=== PATIENT | female | born 1980 | race Caucasian/White ===

== ENCOUNTER 2018-08-26 09:30 | Inpatient (IN) | payer OTHER ==
--- NOTE | 2018-08-12 15:45 | HP ---
Admitting History and Physical - Primary Care Physician PCP: Blas Pagan - Admission Chief Complaint: Left breast cancer History of Present Illness: 38 year old premenapausal female who underwent screening mammogram 04/2018 which showed highly suspicious area of calcifications in the lower inner aspect of left breast cancer spanning over 6 cm. Stereotactic core bx 05/2018 showed high grade DCIS ER-ND+ Breast MRI 06/2018 1.2 cm enhancement left breast 8:00 but calcifications are very extensive. . Myrisk testing was positive for ADAM mutation. History Source: Patient Limitations to Obtaining History: Language Barrier (speaks burundian) - Past Medical History ELECTRICAL DESIGNER DRAFTER: Yes: Migraine Cardiovascular: Yes: HTN Gastrointestinal: Yes: Gastritis (chronic) - Past Surgical History Past Surgical History: Yes: None - Smoking History Smoking history: Never smoked Have you smoked in the past 12 months: No - Alcohol/Substance Use Hx Alcohol Use: Yes (rarely) Home Medications - Allergies Allergies/Adverse Reactions: Allergies Allergy/AdvReac Type Severity Reaction Status Date / Time No Known Allergies Allergy Verified 08/12/18 15:32 - Home Medications Home Medications (free text): butalbitol Family Disease History - Family Disease History Family Disease History: CA: Father (father ? throat cancer) Physical Examination Constitutional: Yes: Well Nourished Breast(s): Yes: Other (small B sized cups with obvious bruising from her steretactic core bx. Some palpable scarring from post bx changes left breast . No adenopathy or palapable masses.) Problem List - Problems (1) Ductal carcinoma in situ (DCIS) of left breast Code(s): D05.12 - INTRADUCTAL CARCINOMA IN SITU OF LEFT BREAST Assessment/Plan Left total mastectomy, sentenel node biopsy, lymphoscintogram ,possible axillary node dissection implant reconstruction
--- NOTE | 2018-08-18 13:45 | PATH ---
Surgical Pathology Report Patient Name: JOSE ANTONIO SALEH [facility]. Rec. #: [id number] /Age/Gender: 1980 (Age: 38) / F Account: [id number] Location: [facility] Taken: 07/27/2018 Received: 07/27/2018 Reported: 08/17/2018 Physicians: Blas Pagan M.D. Specimen(s) Received SLIDE REVIEW Clinical History Abnormal left mammogram with microcalcifications Final Diagnosis BREAST, LEFT, LIQ WITH CALCS, CORE BIOPSY (2 H&E SLIDES: [id number] A; 06/22/18): DUCTAL CARCINOMA IN SITU (DCIS), SOLID, PAPILLARY AND MICROPAPILLARY TYPE, INTERMEDIATE TO HIGH NUCLEAR GRADEWITH EXTENSIVE NECROSIS AND ASSOCIATED CALCIFICATIONS. Per outside report, results of ER and ME studies are as follows: ER: negative. ME: positive (70% of tumor cells staining, intensity: variable). Electronically Signed Lissett Benedict M.D. Amendments Amended: 08/17/2018 Previous Signout Date: 07/29/2018 Comment: To correct typographic error in name of submitting institution. The diagnosis is unchanged. Gross Description Received from [facility], [place], [place] are two H&E slides, labeled with the patient's name and accession number [id number], A 2-2. Also received is a corresponding pathology report.
[2018-08-19 10:36] VITALS: BMI 33.1
[2018-08-26] MEDS ORDERED: MIDAZOLAM HCL 2 MG/2 ML SINGLE DOSE VIAL ONE (10:45)
[2018-08-26] MEDS ORDERED: ROCURONIUM BROMIDE 50 MG/5 ML VIAL ONE ×2 (10:45→13:35)
[2018-08-26] MEDS ORDERED: PROPOFOL 20 ML ONE (10:45)
[2018-08-26] MEDS ORDERED: fentaNYL CITRATE 250 MCG/5 ML VIAL ONE (10:45)
[2018-08-26] MEDS ORDERED: ONDANSETRON 4 MG/2 ML VIAL ONE (10:46)
[2018-08-26] MEDS ORDERED: DEXAMETHASONE SOD PHOSPHATE 4 MG/1 ML VIAL ONE (10:46)
[2018-08-26] MEDS ORDERED: LIDOCAINE HCL/PF 2% SDV 5ML VIAL ONE (10:46)
[2018-08-26] MEDS ORDERED: SODIUM CHLORIDE 0.9% P/F 10 ML VIAL IJ ONE ×2 (10:51→13:23)
[2018-08-26] MEDS ORDERED: ceFAZolin SODIUM 1 GM VIAL ONE ×2 (10:54→12:12)
[2018-08-26] MEDS ORDERED: GENTAMICIN SO4 80 MG/2 ML VIAL ONE (10:54)
[2018-08-26] MEDS ORDERED: oxyCODONE HCL 5 MG TABLET PO PRN (11:47)
[2018-08-26] MEDS ORDERED: ZOLPIDEM TARTRATE 5 MG TABLET PO PRN (11:47)
[2018-08-26] MEDS ORDERED: ONDANSETRON 4 MG/2 ML VIAL IVPUSH PRN (11:47)
[2018-08-26] MEDS ORDERED: BUPIVACAINE HCL/PF 2.5 MG/ML - 30 ML VIAL IJ ONE (13:23)
[2018-08-26] MEDS ORDERED: BUPIVACAINE LIPOSOME/PF (EXPAREL) 266 MG/20 ML VIAL ONE (13:23)
[2018-08-26] MEDS ORDERED: WATER FOR INJ,STERILE 10 ML ONE (14:53)
[2018-08-26] MEDS ORDERED: CEFAZOLIN 1 GM/D5W 1 GM/50 ML BAG IVPB SCH (15:00)
[2018-08-26] MEDS ORDERED: NEOSTIGMINE METHYLSULFATE 0.5 MG/ML - 10 ML MDV ONE (15:28)
[2018-08-26] MEDS ORDERED: GLYCOPYRROLATE 0.2 MG/1 ML VIAL ONE ×2 (15:28→15:29)
--- NOTE | 2018-08-26 15:58 | OP ---
Operative Note - Note: Operative Date: 08/26/18 Pre-Operative Diagnosis: left breast cancer Operation: left breast nipple mastectomy with left axillary sentinnel node biopsy. left breast reconstruction with alloderm and implant Surgeon: Dash Kaufman Heel Stiffener: Stefania Mclaughlin Anesthesiologist/OPERATIONS STAFF SPECIALIST SECURITY: Jeanine Mcfarlane Anesthesia: General Specimens Removed: left breast tissue and axillary tissue Fluid Volume Replaced (mls): 1,200
--- NOTE | 2018-08-26 17:09 | OP ---
DATE OF OPERATION: 08/26/2018 PREOPERATIVE DIAGNOSIS: Left breast ductal carcinoma in situ (DCIS). POSTOPERATIVE DIAGNOSIS: Left breast ductal carcinoma in situ (DCIS). PROCEDURE: Left breast nipple-sparing mastectomy through an inframammary approach with left axillary sentinel lymph node biopsy and direct implant reconstruction with AlloDerm. ANESTHESIA: General endotracheal anesthesia. PRIMARY SURGEON: Sharon Pagan MD MOONER: ALBERT Landers PRIMARY SURGEON FOR DIRECT IMPLANT RECONSTRUCTION: Sharon Kaufman MD, registered medical assistant Stefania. COMPLICATIONS: None. INDICATIONS: The patient is a 38-year-old G2, P2, premenopausal female of [facility] descent with no family history of breast or ovarian cancer. She was found to have extensive calcifications in the lower inner aspect of the left breast on screening mammography in May 2018. Stereotactic biopsy showed intermittent high-grade DCIS which was ER negative and FL positive. MRI just showed a 1.3 cm area of enhancement in the left breast 8 o'clock region. She underwent genetic testing and was found to have an ADAM mutation. The patient was counseled as to possible surgical options. Given the extent of the disease in the left breast, mastectomy was indicated. She was given the option of prophylactic contralateral mastectomy and after a long discussion about the genetics of the ADAM mutation she decided to just have a mastectomy on the left side and continue right breast surveillance. She was seen by Plastic Surgery and direct implant reconstruction was recommended. She was offered nipple-sparing technique. The patient was brought in for the procedure on August 26, 2018. She underwent lymphoscintigraphy through a periareolar injection of technetium-99 at [facility] and then was brought to the [facility] area. PROCEDURE: In the holding area site verification was made and informed consent was obtained. She was marked preoperatively by the plastic surgeon. She was brought into the operating room and laid on the OR table in a supine position. Venodynes were placed on the lower extremities prior to induction. She received Ancef 1 g prior to incision. Both breasts were sterilely prepped and draped in the usual fashion and she underwent general endotracheal anesthesia. The left axillary sentinel lymph node biopsy was first performed after a timeout was performed. An incision was made just below the hair-bearing area of the left axilla and 2 hot lymph nodes were easily found in the level 1 region of the left axilla with the first sentinel node with a 10-second gamma count of 40,204. The second sentinel lymph node had a 10-second gamma count of 4744 and background counts passing over these 2 nodes was 1005. No other hot nodes were found and on frozen section both nodes came back negative, so no further nodes were removed. At this point the nipple-sparing mastectomy was performed through a 9-cm inframammary incision. The skin edges were everted and the breast tissue was retracted inferiorly using Sierra clamps. A skin flap was raised using electrocautery superiorly to the level of the clavicle, medially to the level of the sternum, laterally to the level of the latissimus and inferiorly to the level of the inframammary fold. The breast was taken down off the pectoralis major muscle using electrocautery from an inferior medial to superior lateral, completely removed intact. It was oriented with the long lateral, short superior suture. Sets of radiographs showed removal of the clip in question. Hemostasis was achieved. A retroareolar biopsy was taken underneath the left nipple-areolar complex and sent for frozen section. It came back with some atypia but will await permanent section. A separate anterior margin was taken on the upper flap as well as a separate anterior margin on the lower outer quadrant which were both sent separately to pathology with a suture marking the biopsy cavity side. Again, hemostasis was achieved and the wound was copiously irrigated with warm sterile saline. At this point instruments and gloves were changed and Dr. Kaufman scrubbed into the case, became the primary surgeon to perform the subpectoral direct implant reconstruction with AlloDerm. Two Gaston drains will be placed around the implants, brought through separate stab incisions on the lateral skin flaps and secured in place using 3-0 nylon suture. The axillary incision as well as inframammary incision will be closed by Plastic Surgery using interrupted 3-0 deep dermal PDS suture and a running 4-0 subcuticular Biosyn suture. Mastisol and Steri-Strips will be applied over the wound and she will have Exparel injected into the chest wall for postoperative pain control. The patient will be placed in a surgical bra and extubated at the end of the case. She will be recovered and admitted postoperatively for pain and wound management. Estimated blood loss was about 100 mL at the end of the mastectomy and she was hemodynamically stable. All sponge and needle counts were correct at this point of the case. SHARON PAGAN M.D. [id number]
[2018-08-26] MEDS: CEFAZOLIN 1 GM/D5W 1 GM/50 ML BAG IVPB SCH ×2 (17:19→23:49)
[2018-08-26] MEDS: oxyCODONE HCL 5 MG TABLET PO PRN ×2 (17:20→21:35)
[2018-08-26] MEDS: ACETAMINOPHEN 325 MG TABLET (FP) PO PRN (21:34)
[2018-08-27] MEDS: CEFAZOLIN 1 GM/D5W 1 GM/50 ML BAG IVPB SCH ×4 (06:16→23:52)
[2018-08-27 07:56] LABS: HEMATOCRIT 35.6 % (32.4-45.2); HEMOGLOBIN 12.3 GM/dl (10.7-15.3); MCHC 34.4 g/dl (32.0-36.0); MEAN CELL VOLUME 87.2 fl (80-96); MEAN PLT VOLUME 8.4 fl (7.5-11.1); PLATELET COUNT 384 K/MM3 (134-434); RBC 4.08 M/mm3 (3.60-5.2); RDW 12.1 % (11.6-15.6)
[2018-08-27] MEDS: DEXTROSE 5%-0.45% SALINE 1,000 ML IV SCH ×2 (08:30→12:18)
[2018-08-27] MEDS: oxyCODONE HCL 5 MG TABLET PO PRN ×3 (08:31→17:54)
--- NOTE | 2018-08-27 08:52 | PN ---
Progress Note, Physician Chief Complaint: POD1 s/p left mastectomy/reconstruction under GA. Pt c/o pain after surgery, which is now better controlled. No N/V, was able to ambulate. Doing well now - Current Medication List Current Medications: Active Medications Acetaminophen (Tylenol -) 650 mg PO Q4H PRN PRN Reason: FEVER Last Admin: 08/26/18 21:34 Dose: 650 mg Heparin Sodium (Porcine) (Heparin -) 5,000 unit SQ BID PAZ Dextrose/Sodium Chloride (D5-1/2ns -) 1,000 mls @ 100 mls/hr IV ASDIR PAZ Last Admin: 08/27/18 08:30 Dose: Not Given Cefazolin Sodium (Ancef 1 Gm Premixed Ivpb -) 1 gm in 50 mls @ 100 mls/hr IVPB Q6H PAZ Stop: 09/02/18 17:00 Last Admin: 08/27/18 06:16 Dose: 100 mls/hr Ondansetron HCl (Zofran Injection) 4 mg IVPUSH Q6H PRN PRN Reason: NAUSEA AND/OR VOMITING Oxycodone HCl (Roxicodone -) 5 mg PO Q4H PRN PRN Reason: PAIN LEVEL 1-5 Oxycodone HCl (Roxicodone -) 10 mg PO Q4H PRN PRN Reason: PAIN LEVEL 6-10 Last Admin: 08/27/18 08:31 Dose: 10 mg Zolpidem Tartrate (Ambien -) 5 mg PO HS PRN PRN Reason: Insomnia - Objective Vital Signs: Vital Signs Temperature 98.9 F 08/27/18 06:00 Pulse Rate 91 H 08/27/18 06:00 Respiratory Rate 18 08/27/18 06:00 Blood Pressure 120/70 08/27/18 06:00 O2 Sat by Pulse Oximetry (%) 90 L 08/27/18 06:00 Labs: CBC, BMP 08/27/18 06:00
--- NOTE | 2018-08-27 09:06 | PN ---
Progress Note, Physician Chief Complaint: Left breast cancer S/P left total mastectomy sentenel node biopsy alloderm implant reconstruction POD #1 History of Present Illness: patient eating pain controlled with oxycodone, coughing some WBC 21. afebrile, She is using spirometry - Current Medication List Current Medications: Active Medications Acetaminophen (Tylenol -) 650 mg PO Q4H PRN PRN Reason: FEVER Last Admin: 08/26/18 21:34 Dose: 650 mg Heparin Sodium (Porcine) (Heparin -) 5,000 unit SQ BID PAZ Dextrose/Sodium Chloride (D5-1/2ns -) 1,000 mls @ 100 mls/hr IV ASDIR PAZ Last Admin: 08/27/18 08:30 Dose: Not Given Cefazolin Sodium (Ancef 1 Gm Premixed Ivpb -) 1 gm in 50 mls @ 100 mls/hr IVPB Q6H PAZ Stop: 09/02/18 17:00 Last Admin: 08/27/18 06:16 Dose: 100 mls/hr Ondansetron HCl (Zofran Injection) 4 mg IVPUSH Q6H PRN PRN Reason: NAUSEA AND/OR VOMITING Oxycodone HCl (Roxicodone -) 5 mg PO Q4H PRN PRN Reason: PAIN LEVEL 1-5 Oxycodone HCl (Roxicodone -) 10 mg PO Q4H PRN PRN Reason: PAIN LEVEL 6-10 Last Admin: 08/27/18 08:31 Dose: 10 mg Zolpidem Tartrate (Ambien -) 5 mg PO HS PRN PRN Reason: Insomnia - Objective Vital Signs: Vital Signs Temperature 98.9 F 08/27/18 06:00 Pulse Rate 91 H 08/27/18 06:00 Respiratory Rate 18 08/27/18 06:00 Blood Pressure 120/70 08/27/18 06:00 O2 Sat by Pulse Oximetry (%) 90 L 08/27/18 06:00 Constitutional: Yes: No Distress Breast(s): Yes: Other (left breast flap viable minimal echymosis, incision intact with steristrips BAILEY drains fuctioning well) Labs: CBC, BMP 08/27/18 06:00 Problem List - Problems (1) Ductal carcinoma in situ (DCIS) of left breast Code(s): D05.12 - INTRADUCTAL CARCINOMA IN SITU OF LEFT BREAST Assessment/Plan continue IV antibiotics oxycodone prn spirometry consider CXR if becomes febrile, will discuss with Dr Pagan
--- NOTE | 2018-08-27 09:28 | PN ---
Progress Note (short form) - Note Progress Note: POD#1 Pt with slight cough this am. Pain a 4 to 5. No SOB or CP. Tolerated a diet and voiding without difficulty. Vital Signs Period Temp Pulse Resp BP Sys/Franklin Pulse Ox Last 24 Hr 98.3 F-99.6 F 90-114 12-20 120-141/69-89 90-100 BAILEY: functioning well and 50 and 100ml GEN: A&0x3, NAD CV: Mild tachycardia Lungs: CTA b/l anteriorly Left breast: nipple and flap without ischemia. Mild ecchymosis. Inc c/d/i. CBC, BMP 08/27/ 06:00 A/p: s/p Left nipple sparing mastectomy with sentinel node biopsy Recommend to continue Incentive spirometer and oob/ambulate Will monitor WBC in the am BAILEY care D/w Dr. Kaufman, plan as per the primary team. No issues concerning Left breast reconstruction, flap/nipple viable
[2018-08-27] MEDS: HEPARIN NA (PORCINE) 5,000 UNITS/ML 1ML VIAL SQ SCH ×2 (10:07→22:55)
[2018-08-27] MEDS ORDERED: DOCUSATE SODIUM 100 MG CAPSULE (FP) PO PRN (15:43)
[2018-08-27] MEDS: ACETAMINOPHEN 325 MG TABLET (FP) PO PRN (17:53)
[2018-08-27] MEDS ORDERED: ceFAZolin SODIUM 1 GM VIAL ONE (23:50)
[2018-08-28] MEDS: oxyCODONE HCL 5 MG TABLET PO PRN (01:19)
[2018-08-28] MEDS: ACETAMINOPHEN 325 MG TABLET (FP) PO PRN (04:48)
[2018-08-28 07:13] VITALS: BP 128/72; PULSE 106; TEMP 99.6
--- NOTE | 2018-08-28 09:54 | PN ---
Progress Note, Physician Chief Complaint: Left breast cancer/DCIS lower inner quadrant. Genetic susceptibility for cancer ADAM mutation History of Present Illness: The Patient was found to have fairly extensive calcification in the left breast lower inner quadrant and stereotactic biopsy in May 2018 showed intermediate grade DCIS. MRI showed localized cancer but due to extent of disease and breast size mastectomy was indicated. Genetic testing showed an ADAM mutation but after counseling the patient she decide to only undergo a unilateral left mastectomy. She was seen by plastic surgery and decided to have an implant reconstruction and was a candidate for a nipple sparing technique. She was admitted postoperatively for wound management and pain control after the left breast nipple sparing mastectomy/ SLN biopsy and direct to implant reconstruction. - Current Medication List Current Medications: Active Medications Acetaminophen (Tylenol -) 650 mg PO Q4H PRN PRN Reason: FEVER Last Admin: 08/28/18 04:48 Dose: 650 mg Docusate Sodium (Colace -) 100 mg PO BID PRN PRN Reason: CONSTIPATION Last Admin: 08/28/18 01:04 Dose: 100 mg Heparin Sodium (Porcine) (Heparin -) 5,000 unit SQ BID [facility] Last Admin: 08/27/18 22:55 Dose: 5,000 unit Dextrose/Sodium Chloride (D5-1/2ns -) 1,000 mls @ 100 mls/hr IV ASDIR [facility] Last Admin: 08/27/18 12:18 Dose: Not Given Cefazolin Sodium (Ancef 1 Gm Premixed Ivpb -) 1 gm in 50 mls @ 100 mls/hr IVPB Q6H [facility] Stop: 09/02/18 17:00 Last Admin: 08/27/18 23:52 Dose: 100 mls/hr Ondansetron HCl (Zofran Injection) 4 mg IVPUSH Q6H PRN PRN Reason: NAUSEA AND/OR VOMITING Last Admin: 08/28/18 01:03 Dose: 4 mg Oxycodone HCl (Roxicodone -) 5 mg PO Q4H PRN PRN Reason: PAIN LEVEL 1-5 Oxycodone HCl (Roxicodone -) 10 mg PO Q4H PRN PRN Reason: PAIN LEVEL 6-10 Last Admin: 08/28/18 01:19 Dose: 10 mg Zolpidem Tartrate (Ambien -) 5 mg PO HS PRN PRN Reason: Insomnia - Objective Vital Signs: Vital Signs Temperature 99.6 F 08/28/18 07:00 Pulse Rate 106 H 08/28/18 07:00 Respiratory Rate 17 08/28/18 07:00 Blood Pressure 128/72 08/28/18 07:00 O2 Sat by Pulse Oximetry (%) 97 08/28/18 07:00 Constitutional: Yes: Well Nourished, No Distress, Calm Eyes: Yes: WNL HENT: Yes: WNL Neck: Yes: WNL Cardiovascular: Yes: Regular Rate and Rhythm Respiratory: Yes: Regular, CTA Bilaterally Gastrointestinal: Yes: Normal Bowel Sounds, Soft ...Rectal Exam: Yes: Deferred Genitourinary: Yes: WNL Breast(s): Yes: Other (Left mastectomy wound clean, dry, and intact. Drains functioning well and skin flaps warm and viable.) Musculoskeletal: Yes: WNL Extremities: Yes: WNL Wound/Incision: Yes: Clean/Dry, Well Approximated Neurological: Yes: Alert, Oriented ...Motor Strength: WNL Psychiatric: Yes: WNL Labs: CBC, BMP 08/27/18 06:00 Problem List - Problems (1) Ductal carcinoma in situ (DCIS) of left breast Assessment/Plan: The patient is doing well POD#2 s/p left nipple sparing mastectomy with SLN biopsy and direct to implant reconstruction. She has good pain control and her wounds are clean dry and intact. Drains functioning well. Ski8n flaps viable. She is stable for discharge today and was taught BAILEY drain management. No heavy lifting or exercise. Keep compressive bra on night/day. No bath shower until drains removed. Follow up with Drs. Pagan and Mandeep in 1 week. Home on percocet for pain and cefadroxil antibiotics. Code(s): D05.12 - INTRADUCTAL CARCINOMA IN SITU OF LEFT BREAST
--- NOTE | 2018-08-28 10:03 | DS ---
Physical Examination Vital Signs: Vital Signs Temperature 99.6 F 08/28/18 07:00 Pulse Rate 106 H 08/28/18 07:00 Respiratory Rate 17 08/28/18 07:00 Blood Pressure 128/72 08/28/18 07:00 O2 Sat by Pulse Oximetry (%) 97 08/28/18 07:00 Constitutional: Yes: Well Nourished, No Distress, Calm Eyes: Yes: WNL HENT: Yes: WNL Neck: Yes: WNL Cardiovascular: Yes: Regular Rate and Rhythm Respiratory: Yes: Regular, CTA Bilaterally Gastrointestinal: Yes: Normal Bowel Sounds, Soft ...Rectal Exam: Yes: Deferred Renal/: Yes: WNL Breast(s): Yes: Other (Left mastectomy wound clean, dry, and intact. Drains functioning well. Skin flaps warm and viable) Musculoskeletal: Yes: Muscle Weakness Extremities: Yes: WNL Wound/Incision: Yes: Clean/Dry, Well Approximated Neurological: Yes: Alert, Oriented ...Motor Strength: WNL Psychiatric: Yes: WNL Labs: CBC, BMP 08/27/18 06:00 Discharge Summary Reason For Visit: LEFT BREAST CA Left breast DCIS. Genetic susceptibility for breast cancer. ADAM mutation Procedures: Principal: Left breast nipple sparing mastectomy with left axillary sentinel lymph node biopsy and direct to implant reconstruction with alloderm Hospital Course: The patient was admitted postoperatively for pain control and wound management. She did well and had good pain control with viable skin flaps on POD#2. Her wound were clean, dry, and intact and the drains functioning well. She was stable for discharge by POD#2 and was taught BAILEY drain management on discharge. She is to follow up with Drs. Kaufman and Latasha in 1 week. No heavy lifting or exercise. No bath/shower until drains removed. Keep compressive bra in place day/night. Home on percocet for pain and cefadroxil antibiotics. Condition: Good - Instructions Diet, Activity, Other Instructions: Post Operative Instructions - [facility] We hope your recovery will be uneventful. For those of you who have been given general anesthesia, there is a possibility you might have some lightheadedness and possibly nausea. It is important that each patient, especially those who have had general anesthesia, follow these instructions, please: 1. Do NOT operate a motor vehicle for 24 hours. 2. Do NOT drink any alcoholic beverages for 24 hours. 3. Do NOT take any sedatives, narcotics, or tranquilizers for 24 hours unless specifically ordered by your surgeon. 4. Do NOT undertake any strenuous exercise or outside activity for 24 hours unless specifically permitted by your surgeon. 5. Eat light foods that are easy to digest. If you have any problems with nausea and vomiting, lie down and rest. If it continues, call your surgeon. 6. Call your surgeon AT ONCE if you have problems with: a. Bleeding b. Urinating c. Excessive pain or drainage d. Numbness If any problems occur, call your physician first. If you cannot reach him/her, call the Ambulatory Surgery Unit at [phone], or the Emergency Room at . Follow up with Drs. Pagan / Ailin in 7 days. Medication: Vicodin E-S OR Percocet 1-2 tablets every 4-6 hrs as needed for 5-7 days. Wound Care: Keep wound dry and clean for 48 hours. You may remove the dressing after 48 hours and may shower. Keep steri-strips in place until follow-up appointment No heavy lifting or strenuous activities. BREAST SURGERY INSTRUCTIONS Carlos Pagan M.D., FACS Blas Pagan M.D., FACS Danita Parisi M.D., FACS 1. Please call the office at to make a follow up appointment with your surgeon. This number can be also used for any urgent issues you may have. 2. Call us immediately if any of the following occur: *Bleeding from the incision or drain site (a small amount is normal) *Fever or chills *Redness and worsening tenderness around the surgical site *Drainage of pus or fluid from the incision or drain site 3. You may change the surgical dressing two (2) days after your surgery, and may shower then. If you have drains, you may shower after they have been removed, until then take a sponge bath. 4. It is normal for there to be some bruising and tenderness around the surgical site, and the breast may also be firm in this area. 5. Your surgeon used 3M DuraPrep Surgical Solution, a bacteria-killing skin preparation. It is recommended that this film remain on the skin after the procedure. The film will gradually wear away. If, however, early removal is desired: 1. Apply 8610 or 8611 3M Remover solution to the prepped area, keeping away from the wound edge or puncture site. Wipe off with a disposable towel. OR 2. Soak gauze with 70% Isopropyl alcohol and place on the prepped area for at least 40 seconds. Lightly scrub to remove the solution. 6. Please wear a comfortable bra (sports or surgical bra) all day and all night until your first follow-up visit with your surgeon. 7. The pain medicine you have been prescribed may make you constipated; make sure you drink plenty of water. You may use an over the counter laxative if needed. 8. You may resume your normal diet after surgery, although you may want to avoid rich foods for the first twenty-four (24) hours after surgery. Alcoholic drinks should be avoided while taking the prescribed pain medicine. 9. You may resume normal activities as long as there is no discomfort, but do not do upper body exercises until after your follow-up appointment. Do not lift anything heavier than a large phone book. You may resume driving once you have stopped taking the prescribed pain medicine and feel comfortable doing arm movements.WEAR BRA empty and record BAILEY output twice daily , NO shower Referrals: Blas Pagan MD [Staff Physician] - Dash Kaufman MD [Staff Physician] - Disposition: HOME - Home Medications Comprehensive Discharge Medication List: Ambulatory Orders Cefadroxil 500 mg PO BID #20 capsule 08/27/18 Docusate Sodium [Colace] 100 mg PO BID #10 capsule 08/27/18 Oxycodone HCl/Acetaminophen [Percocet 5-325 mg Tablet] 1 - 2 tab PO Q6H PRN #30 tab MDD 6 08/27/18
--- NOTE | 2018-08-28 15:19 | OP ---
DATE OF OPERATION: 08/26/2018 SURGEON: Sharon Kaufman MD VICE PRESIDENT PLANNING SURGEON: Stefania Mclaughlin PA-C PREOPERATIVE DIAGNOSIS: Left acquired chest wall deformity, status post left mastectomy. OPERATIVE PROCEDURE: Immediate left breast reconstruction utilizing immediate insertion of silicone breast implant and AlloDerm reconstruction. POSTOPERATIVE DIAGNOSIS: Left acquired chest wall deformity, status post left mastectomy. OPERATIVE INDICATION: Patient is a 38-year-old female who was brought to the operating room by Dr. Sharon Pagan for left breast cancer. She underwent procedure by Dr. Pagan which will be dictated under separate cover. OPERATIVE PROCEDURE IN DETAIL: Patient was taken to the operating room by Dr. Pagan, where he performed a left mastectomy in nipple-sparing fashion and sentinel lymph node biopsy. This will be dictated under separate cover. Upon completion of the mastectomy, the wounds were copiously irrigated, hemostasis meticulously obtained, and then a retropectoral pocket was fashioned by entering the lateral portion of the pectoralis major muscle at the chest wall using electrocautery and a lighted retractor. This pocket was developed superiorly to the second rib, medially to the sternal fibers, and down to the inframammary fold, elevating the origin of the pectoralis major muscle. At this point, a sheath of AlloDerm 8 x 16 cm was rehydrated and sterilized from the back table and then attached to the pectoralis major muscle using 3-0 Vicryl suture in a running fashion. This was carried around to the lateral mammary fold and then a second suture begun on the medial side, attaching the AlloDerm material to the chest wall. An implant was then chosen for the reconstructive purposes. A 300-cc Sientra round, smooth, high-profile style 107 implant was placed into the pocket after trialing a 255 implant. This showed better contour and better shape, and once this was in place in a sterile fashion, the AlloDerm was sutured down to the chest wall in the usual fashion at the inframammary fold. At this point, two Reuben-Callaway drains were brought out through separate stab wounds laterally. These were 15-Gaston drains. The skin and subcutaneous tissue was then closed in layers using 2-0 Vicryl suture in the deep tissue, 3-0 Biosyn in a subdermal fashion, and 4-0 Biosyn in a subcuticular fashion. Dry, sterile dressings with Dermabond, Steri-Strips, and a compressive dressing were placed. She was awakened, extubated, and transferred to the recovery room in satisfactory condition. SHARON KAUFMAN M.D. /[id number]
--- NOTE | 2018-08-30 08:09 | SURG ---
Surgery Psychiatric Technician Assistant Note Psychiatric Technician Assistant: Stefania Mclaughlin PA-C Date of Service: 08/26/18 Diagnosis: left breast cancer Procedure: left breast nipple mastectomy with left axillary sentinnel node biopsy. left breast reconstruction with alloderm and implant I was present for the entirety of the operative procedure. For further detail, please refer to operative report. Visit type - Case Type Case Type: Scheduled - Emergency Emergency Visit: No - New patient This patient is new to me today: Yes Date on this admission: 08/26/18 - Critical Care Critical Care patient: No
--- NOTE | 2018-09-01 11:34 | PATH ---
Surgical Pathology Report Patient Name: NICHOLE SALEH Med. Rec. #: [id number] /Age/Gender: 1980 (Age: 38) / F Account: [id number] [facility] Taken: 08/26/2018 Received: 08/26/2018 Reported: 09/01/2018 Physicians: Blas Pagan M.D. Specimen(s) Received A: LEFT SENTINEL NODE #1 (FS) B: LEFT SENTINEL NODE #2 (FS) C: LEFT RETROALVEOLAR BIOPSY (FS) D: LEFT MASTECTOMY E: ANTERIOR MARGIN LEFT BREAST F: LOWER OUTER ANTERIOR MARGIN LEFT BREAST Clinical History Left breast cancer Intraoperative Consult Diagnosis A. Left sentinel lymph node #1, frozen section: One lymph node, negative for carcinoma (0/1). B. Left sentinel lymph node #2, frozen section: One lymph node, negative for carcinoma (0/1). C. Left retroareolar biopsy, frozen section: Atypical ductal hyperplasia, detached fragments. Amrit Molina M.D., 08/26/2018 Final Diagnosis A. SENTINEL LYMPH NODE #1, LEFT, EXCISION (FS): ISOLATED MINUTE CLUSTERS OF ATYPICAL CELLS WITH ASSOCIATED MICROCALCIFICATION INVOLVING ONE LYMPH NODE (0/1). SEE COMMENT. B. SENTINEL LYMPH NODE #2, LEFT, EXCISION (FS): ONE LYMPH NODE, NEGATIVE FOR CARCINOMA ON H& E AND CONFIRMED BY CYTOKERATIN AE1/3 IMMUNOHISTOCHEMICAL STAIN (0/1). C. RETROAREOLAR, LEFT, BIOPSY (FS): BREAST PARENCHYMA WITH FOCAL ATYPICAL DUCTAL HYPERPLASIA AND DETACHED RARE SMALL FRAGMENTS OF ATYPICAL DUCTAL CELLS. D. BREAST, LEFT, MASTECTOMY: EXTENSIVE DUCTAL CARCINOMA IN SITU (DCIS), SOLID, PAPILLARY AND MICROPAPILLARY TYPES, HIGH NUCLEAR GRADE WITH ASSOCIATED CENTRAL NECROSIS AND MICROCALCIFICATIONS, LOWER INNER QUADRANT (LIQ), PRESENT IN FOUR OF TWENTY TWO SLIDES (4/22). DCIS SPANS 2.5 CM IN GREATEST MICROSCOPIC DIMENSION. ANTERIOR SOFT TISSUE SURGICAL MARGIN IS INVOLVED BY DCIS, REMAINDER OF MARGINS ARE NEGATIVE. REMAINDER OF BREAST PARENCHYMA SHOWS INTRADUCTAL PAPILLOMAS AND ATYPICAL DUCTAL HYPERPLASIA IN A BACKGROUND OF PROLIFERATIVE FIBROCYSTIC AND FIBROADENOMATOID CHANGES INCLUDING STROMAL FIBROSIS, MICROCYSTS, COLUMNAR CELL CHANGES, AND APOCRINE METAPLASIA. SEE SPECIMEN E-F FOR FINAL MARGINS. PATHOLOGIC STAGE (PTNM): pTis pN0 (sn). SEE CASE SUMMARY BELOW. E. BREAST, LEFT ANTERIOR MARGIN, EXCISION: BENIGN BREAST PARENCHYMA. F. BREAST, LEFT, LOWER OUTER ANTERIOR MARGIN, EXCISION: BENIGN BREAST PARENCHYMA. Comment: Part A, there are isolated minute clusters of atypical cells with associated microcalcification involving one lymph node, present only on the initial permanent H&E sections. The atypical cells cannot be further characterized, since the foci are no longer present in subsequent H&E levels and cytokeratin AE1/3 immunohistochemical stain. Part D, SMM-HC and p63 immunohistochemical stains performed and interpreted at [facility] show retained myoepithelial cells in DCIS. Comments DCIS of the Breast: Surgical Pathology Cancer Case Summary (Based on AJCC TNM 8 th edition) Procedure _X_ Total mastectomy (including nipple-sparing and skin-sparing mastectomy) Specimen Laterality _X_ Left Size (Extent) of DCIS Estimated size (extent) of DCIS (greatest dimension using gross and microscopic evaluation): at least (millimeters) 25 mm Number of blocks with DCIS: 4 Number of blocks examined: 39 Histologic Type _X_ Ductal carcinoma in situ Architectural Patterns _X_ Micropapillary _X_ Papillary _X_ Solid Nuclear Grade _X__ Grade III (high) Necrosis _X__ Present, central (expansive "comedo" necrosis) Margins _X__ Positive for DCIS Specify margin(s): Anterior soft tissue margin positive for DCIS in mastectomy specimen (D), negative in final margins (E, F). Regional Lymph Nodes _X_ Uninvolved by tumor cells Number of Lymph Nodes Examined: 2 Number of [place] Nodes Examined (if applicable): 2 Pathologic Stage Classification (pTNM, AJCC 8th Edition) Primary Tumor (pT) _X__ pTis (DCIS): Ductal carcinoma in situ Microcalcifications _X__ Present in DCIS _X__ Present in nonneoplastic tissue Biomarker Studies Results of ER and OH studies performed on this specimen (block# D20) at [facility] are as follows: ER (clone [id number] mouse monoclonal antibody by [employer]):>95% nuclear staining with moderate to strong intensity (Positive). OH (clone16 mouse monoclonal antibody by [employer]): ~50% nuclear staining with weak to strong intensity (Positive). Positive and negative controls (internal if applicable) show appropriate results. Formalin fixation and cold ischemic times are within current ASCO/CAP recommendations for ER, OH and Her2 testing. Electronically Signed Nichole Toledo M.D. Gross Description A. Received fresh labeled "left sentinel node #1," is a 0.7 x 0.6 x 0.5 cm lymph node. The specimen is entirely submitted for frozen section. The frozen section residue is entirely submitted in one cassette, FSA. B. Received fresh labeled "left sentinel node #2," is a 0.6 x 0.4 x 0.3 cm lymph node. The specimen is entirely submitted for frozen section. The frozen section residue is entirely submitted in one cassette, FSB. C. Received fresh labeled "left retroareolar biopsy," is a 1.5 x 0.7 x 0.3 cm portion of fibroadipose tissue. The specimen is submitted in toto for frozen section. The frozen section residue is entirely submitted in one cassette, FSC. D. Received in formalin, labeled "left mastectomy," is a 347 gram, 15.5 x 14.5 x 3.0 cm. left mastectomy specimen with a short suture marking the superior aspect and a long suture marking the lateral aspect of the specimen, per the surgeon. There is no skin or nipple present. The deep margin is inked black and the anterior soft tissue margin is inked blue. The specimen is serially sectioned from medial to lateral. Sectioning reveals abundant dense, white, focally firm fibrous tissue. No definitive mass is identified. Process Helper sections are submitted in 22 cassettes as follows: 1-7-upper outer quadrant; 8-12-lower outer quadrant; 13-16-upper inner quadrant; 17-20-lower inner quadrant; 21-anterior soft tissue margin; 22-deep margin. Time to formalin fixation: 51 minutes Total formalin fixation time: Approximately 27 hours. E. Received in formalin labeled "anterior margin left breast," is a 10.0 x 3.0 x 1.3 cm portion of fibroadipose tissue with a suture marking the biopsy cavity side, per the surgeon. The new margin is inked blue and the specimen is serially sectioned. The specimen is entirely and sequentially submitted in 12 cassettes. F. Received in formalin labeled "lower outer anterior margin left breast," is a 3.3 x 2.5 x 1.3 cm portion of fibroadipose tissue with a suture marking the biopsy cavity side, per the surgeon. The new margin is inked blue and the specimen is serially sectioned. The specimen is entirely submitted in 4 cassettes. 08/26/2018 saudi08/26/2018
== END 2018-08-28 11:00 | disposition home or self-care (01) | DRG 362 ==
LOC: FM/S 10:34
PROVIDERS: ADMIT Surgery Surgical Oncology; ATTEND Surgery Surgical Oncology
PROC: 0HTU0ZZ Resection of Left Breast, Open Approach (ICD-10-PCS; principal; 2018-08-26 12:29)
PROC: 07B60ZX Excision of Left Axillary Lymphatic, Open Approach, Diagnostic (ICD-10-PCS; 2018-08-26 12:29)
PROC: 0HRU0JZ Replacement of Left Breast with Synthetic Substitute, Open Approach (ICD-10-PCS; 2018-08-26 12:29)
DX: D05.12 Intraductal carcinoma in situ of left breast (principal); I10 Essential (primary) hypertension; Z17.0 Estrogen receptor positive status [ER+]; Z17.1 Estrogen receptor negative status [ER-]; K29.70 Gastritis, unspecified, without bleeding; Z85.43 Personal history of malignant neoplasm of ovary; G43.909 Migraine, unspecified, not intractable, without status migrainosus
CPT/HCPCS: 36415; 78195-TC; 84703; 85027; 86803; 87389; 88307-TC; 88331-TC; 88341-TC; 94760; A9541; J1644